=== PATIENT | female | born 1940 | race Two or more races ===

== ENCOUNTER 2024-06-26 20:33 | Inpatient (IN) | payer MEDICARE ==
[~2024-06-26] VITALS: Ht 170.2 cm; Wt 79.8 kg
[2024-06-26 21:15] LABS: BASOPHILS % (AUTO) 0.3 % (0.0-2.0); EOSINOPHILS % (AUTO) 0.2 % (0.0-6.0); HEMATOCRIT 41 % (33-45); HEMOGLOBIN 13.6 g/dL (11.5-14.8); LYMPHOCYTES # (AUTO) 0.5 K/uL (0.8-4.8); LYMPHOCYTES % (AUTO) 3.1 % (20.0-44.0); MEAN CORPUSCULAR HEMOGLOBIN 30 PG (26.0-33.0); MEAN CORPUSCULAR HGB CONC 33 g/dl (31.0-36.0); MEAN CORPUSCULAR VOLUME 90 fL (82-100); MONOCYTES # (AUTO) 0.8 K/uL (0.1-1.30); NEUTROPHILS % (AUTO) 91.4 % (43.0-81.0); PLATELET COUNT (AUTO) 221 K/uL (150-450); RED BLOOD CELL COUNT(AUTO) 4.58 MIL/uL (4.0-5.2); RED CELL DISTRIBUTION WIDTH 13.7 % (11.5-15.0); WHITE BLOOD COUNT (AUTO) 15.3 K/uL (4.3-11.0)
[2024-06-26] MEDS: IV NS 0.9% 1,000 ML BAG IV ONE (21:23)
[2024-06-26] MEDS ORDERED: CEFTRIAXONE 1GM BAG (ER ONLY) 50 ML IV ONE (21:24)
[2024-06-26] MEDS: CEFTRIAXONE 1GM BAG (ER ONLY) 50 ML IV ONE (21:25)
[2024-06-26] MEDS: ONDANSETRON HCL/PF 4 MG/2 ML VIAL IVP ONE (21:26)
[2024-06-26] MEDS ORDERED: ONDANSETRON HCL/PF 4 MG/2 ML VIAL ONE (21:26)
[2024-06-26 21:29] LABS: INR 1.08 (0.91-1.10); PARTIAL THROMBOPLASTIN TIME 25.6 SEC (24.3-34.3); PROTHROMBIN TIME 11.4 SECS (9.2-11.1)
[2024-06-26 21:38] LABS: ALANINE AMINOTRANSFERASE 28 U/L (12-78); ALBUMIN 3.6 g/dL (3.4-5.0); ALKALINE PHOSPHATASE 77 U/L (46-116); ASPARTATE AMINOTRANSFERASE 25 U/L (15-37); BILIRUBIN,DIRECT 0.3 mg/dL (0.0-0.2); BILIRUBIN,TOTAL 1.1 mg/dL (0.2-1.0); CALCIUM, SERUM 10.9 mg/dL (8.5-10.1); CARBON DIOXIDE 19 mmol/L (21-32); CHLORIDE 102 mmol/L (98-107); CREATININE 1.5 mg/dL (0.6-1.3); GLUCOSE 200 mg/dL (74-106); POTASSIUM 4.6 mmol/L (3.5-5.1); SODIUM SERUM 136 mmol/L (136-145); TOTAL PROTEIN, SERUM 7.1 g/dL (6.4-8.2); UREA NITROGEN, BLOOD 24 mg/dL (7-18)
[2024-06-26 21:44] LABS: LACTIC ACID 5.4 mmol/L (0.4-2.0)
[2024-06-26 22:09] LABS: APPEARANCE,URINE TURBID (CLEAR); BILIRUBIN,URINE NEGATIVE (NEGATIVE); BLOOD, URINE 1+ Ery/uL (NEGATIVE); COLOR,URINE YELLOW (YELLOW); KETONES,URINE TRACE mg/dL (NEGATIVE); LEUKOCYTE ESTERASE ,URINE 1+ (NEGATIVE); NITRITE, URINE NEGATIVE (NEGATIVE); PH,URINE 5.5 (5.0-8.0); PROTEIN,URINE 1+ mg/dl (NEGATIVE); UGLUCOSE 3+ mg/dL (NEGATIVE); UROBILINOGEN,URINE 0.2 EU/dL (0.2)
[2024-06-26 22:35] LABS: ADD URINE CULTURE YES; BACTERIA,URINE Many /HPF (None Seen); WBC,URINE 51-80 /HPF (0-3)
[2024-06-27] MEDS ORDERED: MAGNESIUM HYDROXIDE 30 ML UDC PO PRN (02:00)
[2024-06-27] MEDS ORDERED: Z GUARD REMEDY 4 OZ OINT TP PRN (02:00)
[2024-06-27] MEDS ORDERED: TEMAZEPAM 15 MG CAPSULE PO PRN (02:00)
[2024-06-27] MEDS ORDERED: ONDANSETRON HCL/PF 4 MG/2 ML VIAL IVP PRN (02:00)
[2024-06-27] MEDS ORDERED: MAG HYDROX/AL HYDROX/SIMETH 30 ML UDC PO PRN (02:00)
[2024-06-27] MEDS ORDERED: DEXTROSE 50%-WATER 50 ML DISP.SYRIN IV PRN (02:30)
[2024-06-27] MEDS ORDERED: METF-442 PO (02:51)
[2024-06-27] MEDS ORDERED: ATOR80TA PO (02:51)
[2024-06-27] MEDS ORDERED: MIDO10TA PO (02:51)
[2024-06-27] MEDS ORDERED: EZET10TA16 PO (02:51)
[2024-06-27] MEDS ORDERED: LEVO88TA5 PO (02:51)
[2024-06-27] MEDS ORDERED: LATA2.5D15 EACHEYE (02:51)
[2024-06-27] MEDS ORDERED: GLIM4TAB37 PO (02:51)
[2024-06-27] MEDS ORDERED: CLOP75TA15 PO (02:51)
[2024-06-27] MEDS ORDERED: BRIM5DRO11 EACHEYE (02:51)
[2024-06-27] MEDS ORDERED: VALS80TA2 PO (02:51)
[2024-06-27] MEDS ORDERED: METO50TA16 PO (02:51)
[2024-06-27] MEDS ORDERED: CITA10SO3 PO (02:51)
[2024-06-27] MEDS ORDERED: SPIR25TA6 PO (02:51)
[2024-06-27] MEDS ORDERED: EMPA25TA PO (02:51)
[2024-06-27] MEDS ORDERED: BIOT1POW3 MC (02:51)
[2024-06-27] MEDS ORDERED: OMEP20TA5 PO (02:51)
[2024-06-27] MEDS ORDERED: AZITHROMYCIN 500 MG VIAL ONE (03:41)
[2024-06-27] MEDS: AZITHROMYCIN 500 MG in IV D5W 250 ML IV SCH (03:59)
[2024-06-27] MEDS: IV NS 0.9% 1,000 ML IV PRN (05:40)
[2024-06-27] MEDS: BLOOD SUGAR DIAGNOSTIC 1 EACH STRIP IN SCH (06:33)
[2024-06-27 08:00] VITALS: BP 148/64; TEMP 98.4; O2SAT 99
[2024-06-27] MEDS: ASPIRIN 81 MG TAB.CHEW PO SCH (08:47)
[2024-06-27] MEDS: PANTOPRAZOLE 40 MG TABLET.DR PO SCH (08:48)
[2024-06-27] MEDS ORDERED: MULT-594 PO (10:00)
[2024-06-27] MEDS ORDERED: BIOT10004 PO (10:00)
[2024-06-27] MEDS ORDERED: CITA10TA17 PO (10:00)
[2024-06-27] MEDS ORDERED: CHOL200059 PO (10:00)
[2024-06-27] MEDS ORDERED: ACET325T53 PO (10:00)
[2024-06-27] MEDS ORDERED: CYAN500T9 PO (10:00)
[2024-06-27] MEDS ORDERED: METO-357 PO (10:00)
[2024-06-27] MEDS ORDERED: SEMA0.25 SQ (10:00)
[2024-06-27] MEDS ORDERED: ACETAMINOPHEN 325 MG TABLET PO PRN (11:30)
[2024-06-27 12:00] VITALS: BP 117/50; TEMP 99.9; O2SAT 96
[2024-06-27 15:16] LABS: CREATININE, URINE 41.2 MG/DL (30.0-125.0); URINE TOTAL PROTEIN 17.7 mg/dL (0-11.9)
[2024-06-27 16:00] VITALS: BP 145/54; TEMP 98; O2SAT 98
[2024-06-27] MEDS: INSULIN REGULAR, HUMAN 100 UNIT/ML 3 ML VIAL SQ PRN (16:58)
[2024-06-27 17:12] LABS: ALBUMIN 2.8 g/dL (3.4-5.0); BILIRUBIN,TOTAL 0.7 mg/dL (0.2-1.0); CALCIUM, SERUM 9.7 mg/dL (8.5-10.1); CREATININE 1.2 mg/dL (0.6-1.3); POTASSIUM 4.2 mmol/L (3.5-5.1); TOTAL PROTEIN, SERUM 6.1 g/dL (6.4-8.2)
[2024-06-27] MEDS: ACETAMINOPHEN 325 MG TABLET PO PRN (17:15)
[2024-06-27 20:00] VITALS: BP 128/48; TEMP 98.6; O2SAT 97
[2024-06-27] MEDS: CEFTRIAXONE 1 G in IV D5W 50 ML IV SCH (20:13)
[2024-06-28] VITALS: BP_SYST 158; BP_SYST 160; BP_DIAS 61; BP_DIAS 74; TEMP 97.9; TEMP 98.4; O2SAT 94; O2SAT 96
[2024-06-28] MEDS: LEVOTHYROXINE SODIUM 88 MCG TABLET PO SCH (06:31)
[2024-06-28] MEDS ORDERED: PANTOPRAZOLE 40 MG TABLET.DR PO SCH (07:30)
[2024-06-28 07:54] LABS: BASOPHILS % (AUTO) 0.2 % (0.0-2.0); EOSINOPHILS % (AUTO) 0.3 % (0.0-6.0); HEMATOCRIT 38 % (33-45); LYMPHOCYTES % (AUTO) 10.4 % (20.0-44.0); MEAN CORPUSCULAR HEMOGLOBIN 30 PG (26.0-33.0); MEAN CORPUSCULAR HGB CONC 35 g/dl (31.0-36.0); MEAN CORPUSCULAR VOLUME 88 fL (82-100); MONOCYTES # (AUTO) 1.1 K/uL (0.1-1.30); MONOCYTES % (AUTO) 11.7 % (2.0-12.0); NEUTROPHILS # (AUTO) 7.2 K/uL (1.8-8.9); NEUTROPHILS % (AUTO) 77.4 % (43.0-81.0); PLATELET COUNT (AUTO) 186 K/uL (150-450); RED BLOOD CELL COUNT(AUTO) 4.28 MIL/uL (4.0-5.2); RED CELL DISTRIBUTION WIDTH 13.8 % (11.5-15.0); WHITE BLOOD COUNT (AUTO) 9.2 K/uL (4.3-11.0)
[2024-06-28 08:00] VITALS: BP 111/58; TEMP 97.7; O2SAT 98
[2024-06-28] MEDS: VALSARTAN 80 MG TABLET PO SCH (08:09)
[2024-06-28] MEDS: CITALOPRAM HYDROBROMIDE 10 MG TABLET PO SCH (08:09)
[2024-06-28] MEDS: METOPROLOL SUCCINATE 50 MG TAB.SR.24H PO SCH (08:10)
[2024-06-28] MEDS: SPIRONOLACTONE 25 MG TABLET PO SCH (08:10)
[2024-06-28] MEDS: CLOPIDOGREL BISULFATE 75 MG TABLET PO SCH (08:10)
[2024-06-28 08:14] LABS: ALBUMIN 2.7 g/dL (3.4-5.0); BILIRUBIN,TOTAL 0.6 mg/dL (0.2-1.0); CALCIUM, SERUM 10.1 mg/dL (8.5-10.1); PHOSPHORUS 2.8 mg/dL (2.5-4.9); POTASSIUM 4.4 mmol/L (3.5-5.1); TOTAL PROTEIN, SERUM 6.5 g/dL (6.4-8.2)
[2024-06-28 08:19] LABS: THYROID STIMULATING HORMONE 0.95 uIU/mL (0.358-3.74)
[2024-06-28 10:05] LABS: MAGNESIUM 1.1 mg/dL (1.8-2.4)
[2024-06-28] MEDS: Magnesium 1GM/D5W 100ML PREMIX 100 ML IV SCH (11:12)
[2024-06-28 20:00] VITALS: BP 139/62; TEMP 98.2; O2SAT 97
[2024-06-29] VITALS: BP 141/61; TEMP 98.1; O2SAT 98
[2024-06-29 04:00] VITALS: BP 119/54; TEMP 98.4; O2SAT 99
[2024-06-29 07:00] VITALS: BP 128/47; TEMP 97.7; O2SAT 100
[2024-06-29 08:04] LABS: CALCIUM, SERUM 9.9 mg/dL (8.5-10.1); MAGNESIUM 1.7 mg/dL (1.8-2.4); PHOSPHORUS 2.7 mg/dL (2.5-4.9)
[2024-06-29 08:07] LABS: BASOPHILS % (AUTO) 0.3 % (0.0-2.0); EOSINOPHILS # (AUTO) 0.2 K/uL (0.0-0.7); EOSINOPHILS % (AUTO) 2.8 % (0.0-6.0); HEMATOCRIT 42 % (33-45); HEMOGLOBIN 14.1 g/dL (11.5-14.8); LYMPHOCYTES # (AUTO) 1.3 K/uL (0.8-4.8); LYMPHOCYTES % (AUTO) 17.1 % (20.0-44.0); MEAN CORPUSCULAR HEMOGLOBIN 30 PG (26.0-33.0); MEAN CORPUSCULAR HGB CONC 34 g/dl (31.0-36.0); MEAN CORPUSCULAR VOLUME 89 fL (82-100); MONOCYTES # (AUTO) 0.9 K/uL (0.1-1.30); MONOCYTES % (AUTO) 12.6 % (2.0-12.0); NEUTROPHILS # (AUTO) 4.9 K/uL (1.8-8.9); NEUTROPHILS % (AUTO) 67.2 % (43.0-81.0); PLATELET COUNT (AUTO) 163 K/uL (150-450); RED BLOOD CELL COUNT(AUTO) 4.72 MIL/uL (4.0-5.2); RED CELL DISTRIBUTION WIDTH 13.8 % (11.5-15.0); WHITE BLOOD COUNT (AUTO) 7.4 K/uL (4.3-11.0)
[2024-06-29] MEDS ORDERED: CEPH-570 PO (09:14)
[2024-06-29] MEDS: MAGNESIUM OXIDE 400 MG TABLET PO ONE (10:58)
[2024-06-29 11:36] VITALS: BP 110/49; TEMP 97.9; O2SAT 98
[2024-06-30] MEDS ORDERED: AZITHROMYCIN 250 MG TABLET PO SCH (02:00)
[2024-06-30 08:11] LABS: PTH, INTACT 19 pg/mL (15-65)
== END 2024-06-29 14:00 | disposition home health service (06) | DRG 682 ==
LOC: ER 20:35 → TELE 06-27 01:40
PROVIDERS: ADMIT Nurse Practitioner Acute Care; ATTEND Internal Medicine
DX: N17.0 Acute kidney failure with tubular necrosis (principal); I21.A1 Myocardial infarction type 2; N39.0 Urinary tract infection, site not specified; E87.20 Acidosis, unspecified; I13.0 Hypertensive heart and chronic kidney disease with heart failure and stage 1 through stage 4 chronic kidney disease, or unspecified chronic kidney disease; I50.22 Chronic systolic (congestive) heart failure; E11.9 Type 2 diabetes mellitus without complications; E86.0 Dehydration; E78.5 Hyperlipidemia, unspecified; I25.10 Atherosclerotic heart disease of native coronary artery without angina pectoris; Z95.1 Presence of aortocoronary bypass graft; Z79.02 Long term (current) use of antithrombotics/antiplatelets; Z79.899 Other long term (current) drug therapy; Z79.84 Long term (current) use of oral hypoglycemic drugs; I25.5 Ischemic cardiomyopathy; Z95.0 Presence of cardiac pacemaker; Z88.5 Allergy status to narcotic agent; Z87.442 Personal history of urinary calculi; M89.8X9 Other specified disorders of bone, unspecified site; K80.20 Calculus of gallbladder without cholecystitis without obstruction; E11.22 Type 2 diabetes mellitus with diabetic chronic kidney disease; N18.9 Chronic kidney disease, unspecified; I49.9 Cardiac arrhythmia, unspecified; R32 Unspecified urinary incontinence
CPT/HCPCS: 36415; 71045-TC; 76705-TC; 76770-TC; 80048-TC; 80053-TC; 80061-TC; 80076-TC; 81001; 82550-TC; 82570-TC; 82962-TC; 83605-TC; 83735-TC; 83880; 83970; 84100-TC; 84155; 84165; 84300-TC; 84443-TC; 84484-TC; 85025-TC; 85730-TC; 87040-TC; 87086-TC; 87186-TC; 93307-TC; 97110-TC; 97112-TC; 97116-TC; 97530-TC; A4223; G0378; J0456; J0696; J1815; J2405; J3475; J7030; J7060